=== PATIENT | female | born 1980 | race Caucasian/White ===

== ENCOUNTER 2017-05-27 08:00 | Emergency (ER) | payer BC ==
[2017-05-27 08:12] VITALS: BP 115/88
--- NOTE | 2017-05-27 10:36 | ER ---
DATE SEEN: 05/27/2017 CHIEF COMPLAINT: Eye pain. HISTORY OF PRESENT ILLNESS: This is a 36-year-old female with left eye pain for 2 days, [id number] irritation, described as an irritation, and nothing seems to help. Lights make it worse. REVIEW OF SYSTEMS: No cold symptoms. No vomiting, nausea, or headache. ALLERGIES: None. PHYSICAL EXAMINATION: GENERAL: She is afebrile. VITAL SIGNS: Temperature is 97.7, blood pressure is normal. EYES: Conjunctival redness noted on the left. Pupils are equal and reactive to light and anterior chambers are normal in depth, contours, and color. Pupils are equal and reactive to light. Extraocular movements are intact. IMPRESSION: Acute conjunctivitis on the left. PLAN: Maxitrol drops one t.i.d. for 3 days. Advised to follow up with Optometry or Ophthalmology by Saturday if symptoms have not improved. /[id number] MARLON/PAUL
== END 2017-05-27 08:55 | disposition home or self-care (01) ==
LOC: FB.ED 08:00
DX: H10.32 Unspecified acute conjunctivitis, left eye (principal)
CPT/HCPCS: 99282

== ENCOUNTER 2025-09-29 08:00 | Day surgery (SDC) | payer BC, OTHER ==
[~2025-09-29 08:00] MED LIST: Sodium Chloride 0.9% 10 ML Syringe FLUSH PRN
[2025-09-29] MEDS ORDERED: Propofol 200 MG/20 ML SDV IV ONE (08:01)
[2025-09-29 08:24] VITALS: BP 144/96; PULSE 94
[2025-09-29] MEDS: Lactated Ringers 1,000 ML IV SCH (08:42)
== END 2025-09-29 10:48 | disposition home or self-care (01) ==
LOC: FB.SDS 08:00
PROVIDERS: ATTEND Surgery
DX: Z12.11 Encounter for screening for malignant neoplasm of colon (principal); K63.5 Polyp of colon; K62.1 Rectal polyp; E03.9 Hypothyroidism, unspecified; F17.210 Nicotine dependence, cigarettes, uncomplicated; Z79.899 Other long term (current) drug therapy; Z79.890 Hormone replacement therapy
CPT/HCPCS: 00811; 45385; 88305; A9270; J2704; J7120